=== PATIENT | female | born 1985 | race African-American/Black ===

== ENCOUNTER 2016-10-24 19:26 | Emergency (ER) | payer SELFPAY ==
[2016-10-24] MEDS ORDERED: OXYCODONE-ACETAMINOPHEN 5-325 MG TABLET PO ONE (19:52)
[2016-10-24] MEDS ORDERED: LIDOCAINE 1% INJ-PF (10 MG/ML) 30 ML SDV INJ ONE (19:52)
[2016-10-24] MEDS ORDERED: CEPHALEXIN 500 MG CAPSULE PO ONE (20:07)
--- NOTE | 2016-10-24 20:07 | ER Document Report ---
ED Skin Rash/Insect Bite/Abscs - General Chief Complaint: Abscess Stated Complaint: ABSCESS Notes: patient is a 31 year old female p/w abscess for 5 days, denies f/c/n/v/d/c. not draining. she has a history of these, never required surgery REVIEW OF SYSTEMS: CONSTITUTIONAL : Denies fever, chills, or sweats. Denies recent illness. EENT: Denies eye, ear, throat, or mouth pain or symptoms. Denies nasal or sinus congestion or discharge. Denies throat, tongue, or mouth swelling or difficulty swallowing. CARDIOVASCULAR: Denies chest pain. Denies palpitations or racing or irregular heart beat. Denies ankle edema. RESPIRATORY: Denies cough, cold, or chest congestion. Denies shortness of breath, difficulty breathing, or wheezing. GASTROINTESTINAL: Denies abdominal pain or distention. Denies nausea, vomiting , or diarrhea. Denies blood in vomitus, stools, or per rectum. Denies black, tarry stools. Denies constipation. GENITOURINARY: Denies difficulty urinating, painful urination, burning, frequency, blood in urine, or discharge. FEMALE GENITOURINARY: Denies vaginal bleeding, heavy or abnormal periods, irregular periods. Denies vaginal discharge or odor. MUSCULOSKELETAL: Denies any muscle spasms, difficulty walking, extremity pain SKIN: Denies rash, lesions or sores. See history of present illness HEMATOLOGIC : Denies easy bruising or bleeding. LYMPHATIC: Denies swollen, enlarged glands. NEUROLOGICAL: Denies confusion or altered mental status. Denies passing out or loss of consciousness. Denies dizziness or lightheadedness. Denies headache. Denies weakness or paralysis or loss of use of either side. Denies problems with gait or speech. Denies sensory loss, numbness, or tingling. Denies seizures. PSYCHIATRIC: Denies anxiety or stress. Denies depression, suicidal ideation, or homicidal ideation. ALL OTHER SYSTEMS REVIEWED AND NEGATIVE. Dictation was performed using [employer] voice recognition software TRAVEL OUTSIDE OF THE [place] IN LAST 30 DAYS: No - Related Data Allergies/Adverse Reactions: No Known Allergies Allergy (Verified 10/24/16 19:48) Past Medical History - Social History Smoking Status: Unknown if Ever Smoked Family History: Reviewed & Not Pertinent Patient has suicidal ideation: No Patient has homicidal ideation: No Renal/ Medical History: Denies: Hx Peritoneal Dialysis - Immunizations Immunizations up to date: No Hx Diphtheria, Pertussis, Tetanus Vaccination: Yes Physical Exam - Vital signs Vitals: Temp Pulse Resp BP Pulse Ox 98.3 F 84 18 127/86 H 95 10/24/16 19:44 10/24/16 19:44 10/24/16 19:44 10/24/16 19:44 10/24/16 19:44 - General General appearance: Appears well, Alert In distress: None - Skin Skin Temperature: Warm Skin Moisture: Dry Skin Color: Normal Skin Turgor: Elastic Skin irregularity: Abscess Location of irregularity: Other - groin Irregularity with: Tenderness, Warmth, Induration - with fluctuation Course - Re-evaluation Re-evalutation: 10/24/16 20:36 ID at the bedside for 10 mL per fluid and culture sent. Patient is usually on antibiotics. Discharged home to follow-up with primary care as needed. - Vital Signs Vital signs: Temp Pulse Resp BP Pulse Ox 98.3 F 84 18 127/86 H 95 10/24/16 19:44 10/24/16 19:44 10/24/16 19:44 10/24/16 19:44 10/24/16 19:44 Procedures - Incision and Drainage Groin Type: Simple Anesthetic type: 1% Lidocaine mL's of anesthetic: 3 Blade size: 11 I&D procedure: Betadine prep applied, Sterile dressing applied Incision Method: Incision made with needle Amount/type of drainage: 10 purulent fluid Female anatomy: 1 - abscess Discharge - Discharge Clinical Impression: Abscess Condition: Good Disposition: HOME, SELF-CARE Instructions: Abscess ([facility]), Cephalexin ([facility]), Post Incision and Drainage, Oral Narcotic Medication ([facility]) Additional Instructions: Follow-up with her primary care provider as needed Prescriptions: Cephalexin Monohydrate [Keflex 500 mg Capsule] 500 mg PO BID 7 Days
[2016-10-24] MEDS ORDERED: HYDROCODONE/ACETAMINOPHEN 5-325 MG 6 TAB/DSPK PO PRN (20:30)
[2016-10-24 20:54] VITALS: BP 121/84
== END 2016-10-24 20:55 | disposition home or self-care (01) ==
LOC: ER 19:26
DX: L02.214 Cutaneous abscess of groin (principal)
CPT/HCPCS: 10060; 99283; 87070; 87205; 87075; 87077; J3490

== ENCOUNTER 2018-03-03 05:55 | Emergency (ER) | payer OTHER, MEDICAID ==
[2018-03-03 06:09] VITALS: BP 129/74
== END 2018-03-03 09:00 | disposition left against medical advice (07) ==
LOC: ER 05:55
DX: Z53.21 Procedure and treatment not carried out due to patient leaving prior to being seen by health care provider (principal)